=== PATIENT | female | born 1970 | race Caucasian/White ===

== ENCOUNTER → 2022-01-17 | Outpatient (CLI) | payer BC | LOC: EXRD 10:59 | DX: M79.641 Pain in right hand (principal); M79.642 Pain in left hand | CPT/HCPCS: 73130 ==

== ENCOUNTER → 2022-02-20 | Day surgery (SDC) | payer BC ==
[~2022-02-20] MED LIST: CYMBALTA60 MG PO; LISINOPRIL2.5 MG PO; RELAFEN750 MG PO
== END | disposition home or self-care (01) ==
LOC: OR 07:06
DX: Z12.11 Encounter for screening for malignant neoplasm of colon (principal); D12.0 Benign neoplasm of cecum; D12.3 Benign neoplasm of transverse colon; K64.8 Other hemorrhoids; K64.4 Residual hemorrhoidal skin tags; E66.3 Overweight; I10 Essential (primary) hypertension; Z88.6 Allergy status to analgesic agent; Z88.0 Allergy status to penicillin; Z68.27 Body mass index [BMI] 27.0-27.9, adult
CPT/HCPCS: J2704; J7040